=== PATIENT | male | born 1945 | race Caucasian/White ===

== ENCOUNTER 2017-12-11 20:05 | Observation (INO) ==
[2017-12-11 20:32] LABS: Basophils # 0.1 K/mcL (0.0-0.2); Basophils % 1.1 %; Eosinophils # 0.4 K/mcL (0.0-0.6); Eosinophils % 5.2 %; Hematocrit 44.9 % (37.5-50.1); Hemoglobin 15.2 g/dL (12.9-16.9); Immature Granulocytes % 0.4 % (0-4); Lymphocytes # 2.2 K/mcL (0.6-4.6); Lymphocytes % 27.7 %; Mean Corpuscular HGB Conc 33.9 g/dL (31.6-35.5); Mean Corpuscular Hemoglobin 30.2 pg (28.0-33.3); Mean Corpuscular Volume 89.1 fL (83.0-100.0); Mean Platelet Volume 9.5 fL (9.4-12.4); Monocytes # 1.1 K/mcL (0.0-1.3); Neutrophils # 4.1 K/mcL (1.6-8.9); Platelet Count 230 K/mcL (140-400); Red Blood Count 5.04 M/mcL (4.19-5.50); Red Cell Distribution Width 13.2 % (11.5-14.5); Segmented Neutrophils % 51.6 %
--- NOTE | 2017-12-11 20:36 | Emergency Department Note ---
Disposition Clinical Impression: Altered mental status Qualifiers: Altered mental status type: unspecified Qualified Code(s): R41.82 - Altered mental status, unspecified Disposition: Admitted As Inpatient Condition: Fair Forms: ED Satisfaction Letter Time of Disposition: 22:00 Neuro HPI - General Chief Complaint: ED Neuro Symptoms/Deficit Stated Complaint: Possible stroke Time Seen by Provider: 12/11/17 20:17 Source: patient, family Limitations: no limitations - History of Present Illness HPI Narrative: Alonzo Dalton is a 72 year old male presenting with 40 minutes of dizziness that started when he was in the barn with his son on his property. As his son b brought him back to the house, he noted stumbling gait and his states that he became very pale. He did have confused and rambling speech, as well. This has since improved. He also experienced diaphoresis and nausea, but no chest pain, shortness of breath, or vomiting. There were no focal neurologic deficits noted. Patient has a significant cardiac history including ME, 6 or 7 coronary stents, and aortic stenosis. Patient's last catheterization was 2-3 weeks ago, with no revision done at that time. - Related Data Home Medications: Home Medications Medication Instructions Recorded Confirmed Atorvastatin [Lipitor] 40 mg PO HS 06/17/16 11/22/17 Lisinopril [Zestril] 20 mg PO DAILY 06/17/16 11/22/17 Metoprolol XL (24 HR) Succ [Toprol 25 mg PO BID 06/17/16 11/22/17 Xl] Nitroglycerin [Nitrostat] 0.4 mg SL DAILY PRN 06/17/16 11/22/17 Clopidogrel [Plavix] 75 mg PO DAILY 11/22/17 11/22/17 Previous Rx's Medication Instructions Recorded Isosorbide MONOnitrate (24 HR) 60 mg PO BID #60 tab.er.24h 11/22/17 [Imdur] Allergies/Adverse Reactions: Allergies Allergy/AdvReac Type Severity Reaction Status Date / Time No Known Allergies Allergy Verified 06/17/16 13:32 Constitutional: Reports: fever, chills Cardiovascular: Denies: chest pain, palpitations, dyspnea on exertion Neurological: Reports: confusion, abnormal gait. Denies: headache, weakness, numbness, paresthesias Past Medical History - Past Medical History Medical history: Reports: coronary artery disease, hyperlipidemia, hypertension , myocardial infarction Surgical history: Reports: angioplasty/stent, other Psychiatric history: Reports: no psych history - Social History Smoking Status: Never smoker Smokeless Tobacco Status: No Alcohol use: Reports: none Drug use: Reports: none Physical Exam - General Limitations: no limitations General appearance: alert, in no apparent distress - Head Head exam: atraumatic, normocephalic - Eye Eye exam: Present: PERRL - Respiratory Respiratory exam: Present: normal lung sounds bilaterally - Cardiovascular Cardiovascular exam: Present: regular rate, systolic murmur, +S1, +S2 - Neurological Exam Neurological exam: Present: alert, oriented X3, CN II-XII intact, other ( patient able to identify "stethoscope" and "pen"; no facial asymmetry; no focal deficits noted) - Psychiatric Psychiatric exam: Present: normal affect, normal mood - Skin Skin exam: Present: warm, dry Course Course Narrative: Patient presented with concern for stroke after an episode of dizziness, stumbling gait, and rambling speech. Family denied focal symptoms, including facial drooping, arm or leg weakness, and slurring speech. Patient without focal neurologic deficits on presentation, and symptomatology more closely resembles a presyncope. Patient does have a history of aortic stenosis per his daughter. CBC, BMP, and coags were without significant abnormalities. His daughter at this point stated the she did think he had some facial drooping at home, and they were noticing personality changes with inappropriate comments. It was at this point that we activated the stroke alert and CT scan was ordered. Case was discussed with [facility] and it was decided the patient was not a candidate for TPA due to his lack of hard neurologic signs and his use of plavix. Patient remained in good condition with stable vital signs and no noted neurologic changes. Patient was discussed with Dr. Mcpherson and the patient was admitted for further work up. Vital Signs Temperature 98.7 F 12/11/17 20:11 Pulse Rate 71 12/11/17 20:11 Respiratory Rate 18 12/11/17 20:11 Blood Pressure 179/97 12/11/17 20:11 O2 Sat by Pulse Oximetry 96 12/11/17 20:11 Temperature 98.7 F 12/11/17 20:11 Pulse Rate 71 12/11/17 20:11 Respiratory Rate 18 12/11/17 20:11 Blood Pressure 179/97 12/11/17 20:11 O2 Sat by Pulse Oximetry 96 12/11/17 20:11 Oxygen Delivery Oxygen Delivery Room Air Neuro Symptoms/Deficit - Medical Records Medical records reviewed: Yes I reviewed the patient's medical records. - Lab Data Lab results reviewed: Yes I reviewed the patient's lab results. Result diagrams: 12/11/17 20:13 12/11/17 20:13 Lab Results 12/11/17 12/11/17 12/11/17 Range/Units 20:13 20:13 20:13 WBC 8.0 (4.3-11.1) K/mcL RBC 5.04 (4.19-5.50) M/mcL Hgb 15.2 (12.9-16.9) g/dL Hct 44.9 (37.5-50.1) % MCV 89.1 (83.0-100.0) fL MCH 30.2 (28.0-33.3) pg MCHC 33.9 (31.6-35.5) g/dL RDW 13.2 (11.5-14.5) % Plt Count 230 (140-400) K/mcL MPV 9.5 (9.4-12.4) fL Immature Gran % 0.4 (0-4) % Seg Neutrophils % 51.6 % Lymphocytes % 27.7 % Monocytes % 14.0 % Eosinophils % 5.2 % Basophils % 1.1 % Neutrophils # 4.1 (1.6-8.9) K/mcL Lymphocytes # 2.2 (0.6-4.6) K/mcL Monocytes # 1.1 (0.0-1.3) K/mcL Eosinophils # 0.4 (0.0-0.6) K/mcL Basophils # 0.1 (0.0-0.2) K/mcL PT 11.3 (9.4-12.1) Seconds INR 1.1 APTT 28.4 (26.0-36.0) Seconds Sodium 141 (136-145) mEq/L Potassium 3.6 (3.5-5.1) mEq/L Chloride 109 H (98-107) mEq/L Carbon Dioxide 23 (23-29) mEq/L BUN 15 (8-23) mg/dL Creatinine 1.14 (0.70-1.30) mg/dL Est GFR ( Amer) > 60 (> 60) Est GFR (Non-Af Amer) > 60 (> 60) BUN/Creatinine Ratio 13 (6-26) Glucose 105 (70-105) mg/dL Calculated Osmolality 293 (280-300) Calcium 9.7 (8.6-10.3) mg/dL Troponin I < 0.03 (< 0.04) ng/mL - EKG Data EKG attestation: Yes I reviewed and interpreted this EKG. Rhythm: NSR NIH Stroke Scale - Level of Consciousness LOC: Alert - LOC Questions LOC Questions: Answers both correctly - LOC Commands LOC Commands: Performs both correctly - Best Gaze Best Gaze: Normal - Visual Visual: No visual loss - Facial Palsy Facial Palsy: Normal - Motor Arms Motor Arm-Left: No drift for 10 seconds Motor Arm-Right: No drift for 10 seconds - Motor Legs Motor Leg-Left: No drift for 5 seconds Motor Leg-Right: No drift for 5 seconds - Limb Ataxia Limb Ataxia: Normal, No Ataxia - Sensory Sensory: Normal - Best Language Best Language: No aphasia - Dysarthria Dysarthria: Normal - Extinction and Inattention Extinction and Inattention: Normal - NIHSS Total Score NIHSS Total Score: 0 TPA Checklist - LKW: 3-4.5 hrs Add. Warnings/Precautions Patient/family understanding: The patient/family members have been counseled and understood the risk, benefit , and alternatives of treatment.
--- NOTE | 2017-12-11 20:37 | Emergency Department Note ---
Disposition Clinical Impression: Altered mental status Qualifiers: Altered mental status type: disorientation Qualified Code(s): R41.0 - Disorientation, unspecified Disposition: Admitted As Inpatient Condition: Fair General Adult HPI - General Chief complaint: ED Neuro Symptoms/Deficit Stated complaint: Possible stroke Time Seen by Provider: 12/11/17 20:17 Source: patient, family Limitations: no limitations Nursing Notes Reviewed: Yes Vital Signs Reviewed: Yes - History of Present Illness Pain Scale: 0 - Related Data Home Medications Medication Instructions Recorded Confirmed Atorvastatin [Lipitor] 40 mg PO HS 06/17/16 12/11/17 Lisinopril [Zestril] 20 mg PO DAILY 06/17/16 12/11/17 Metoprolol XL (24 HR) Succ [Toprol 25 mg PO BID 06/17/16 12/11/17 Xl] Nitroglycerin [Nitrostat] 0.4 mg SL DAILY PRN 06/17/16 12/11/17 Clopidogrel [Plavix] 75 mg PO DAILY 11/22/17 12/11/17 Previous Rx's Medication Instructions Recorded Isosorbide MONOnitrate (24 HR) 60 mg PO BID #60 tab.er.24h 11/22/17 [Imdur] Allergies Allergy/AdvReac Type Severity Reaction Status Date / Time No Known Allergies Allergy Verified 06/17/16 13:32 Past Medical History - Past Medical History Medical history: Reports: coronary artery disease, hyperlipidemia, hypertension , myocardial infarction Surgical history: Reports: angioplasty/stent, other Psychiatric history: Reports: no psych history - Social History Smoking Status: Never smoker Smokeless Tobacco Status: No Alcohol use: Reports: none Drug use: Reports: none Physical Exam - General Limitations: no limitations General appearance: alert, in no apparent distress Course Vital Signs Temperature 98.7 F 12/11/17 20:11 Pulse Rate 71 12/11/17 20:11 Respiratory Rate 18 12/11/17 20:11 Blood Pressure 179/97 12/11/17 20:11 O2 Sat by Pulse Oximetry 96 12/11/17 20:11 Temperature 98.7 F 12/11/17 20:11 Pulse Rate 82 12/11/17 22:42 Respiratory Rate 16 12/11/17 22:42 Blood Pressure 160/85 12/11/17 22:42 O2 Sat by Pulse Oximetry 95 12/11/17 22:42 Oxygen Delivery Oxygen Delivery Room Air Medical Decision Making - Lab Data Result diagrams: 12/11/17 20:13 12/11/17 20:13 Lab Results 12/11/17 12/11/17 12/11/17 Range/Units 20:13 20:13 20:13 WBC 8.0 (4.3-11.1) K/mcL RBC 5.04 (4.19-5.50) M/mcL Hgb 15.2 (12.9-16.9) g/dL Hct 44.9 (37.5-50.1) % MCV 89.1 (83.0-100.0) fL MCH 30.2 (28.0-33.3) pg MCHC 33.9 (31.6-35.5) g/dL RDW 13.2 (11.5-14.5) % Plt Count 230 (140-400) K/mcL MPV 9.5 (9.4-12.4) fL Immature Gran % 0.4 (0-4) % Seg Neutrophils % 51.6 % Lymphocytes % 27.7 % Monocytes % 14.0 % Eosinophils % 5.2 % Basophils % 1.1 % Neutrophils # 4.1 (1.6-8.9) K/mcL Lymphocytes # 2.2 (0.6-4.6) K/mcL Monocytes # 1.1 (0.0-1.3) K/mcL Eosinophils # 0.4 (0.0-0.6) K/mcL Basophils # 0.1 (0.0-0.2) K/mcL PT 11.3 (9.4-12.1) Seconds INR 1.1 APTT 28.4 (26.0-36.0) Seconds Sodium 141 (136-145) mEq/L Potassium 3.6 (3.5-5.1) mEq/L Chloride 109 H (98-107) mEq/L Carbon Dioxide 23 (23-29) mEq/L BUN 15 (8-23) mg/dL Creatinine 1.14 (0.70-1.30) mg/dL Est GFR ( Amer) > 60 (> 60) Est GFR (Non-Af Amer) > 60 (> 60) BUN/Creatinine Ratio 13 (6-26) Glucose 105 (70-105) mg/dL Calculated Osmolality 293 (280-300) Calcium 9.7 (8.6-10.3) mg/dL Troponin I < 0.03 (< 0.04) ng/mL Attestation Statement - Attestation Attestation: I, Frank Mcarthur, examined this patient and my medical decision-making was reviewed with the BODY STRAIGHTENER/PA/Advanced Practice Nurse/Resident Physician. I agree with the documented findings, disposition and treatment plan as described except to the extent set forth below. 72-year-old male presents emergency Department with concerns of acute onset near syncopal symptoms. Patient states he was out in the barn helping his son when he had acute onset of lightheadedness, sweating, nausea. He walked back to the house and the states that he had become very pale had mild slurred speech however he did not have any focal neurologic deficits noted by the . Patient has a significant history of coronary artery disease with multiple stents in place. He recently had a heart catheterization performed within the past 3 weeks however there were no revisions to his stents at that time. Patient came into the emergency department as a possible stroke however he had no focal neurologic deficits present on exam, with NIH of 0, and there is no deficits that were described other than momentary slurred speech which I believe was more likely due to near syncope rather than stroke as there is no facial drooping and this lasted for a few seconds. We will obtain laboratory evaluation to rule out ACS he will likely be admitted to the hospital for further care and evaluation for near syncopal event.
[2017-12-11 20:38] LABS: INR 1.1; Prothrombin Time 11.3 Seconds (9.4-12.1)
[2017-12-11 20:41] LABS: Activated Partial Thrombo Time 28.4 Seconds (26.0-36.0)
[2017-12-11 20:42] LABS: BUN/Creatinine Ratio 13 (6-26); Blood Urea Nitrogen 15 mg/dL (8-23); Calcium 9.7 mg/dL (8.6-10.3); Carbon Dioxide 23 mEq/L (23-29); Chloride 109 mEq/L (98-107); Glucose 105 mg/dL (70-105); Osmolality,Calculated 293 (280-300); Potassium 3.6 mEq/L (3.5-5.1); Sodium 141 mEq/L (136-145); eGFR For African Americans > 60 (> 60); eGFR For Non-African Americans > 60 (> 60)
[2017-12-11 20:43] LABS: Troponin I < 0.03 ng/mL (< 0.04)
[2017-12-11] MEDS ORDERED: Aspirin 81 MG TAB.CHEW PO STA (21:03)
--- NOTE | 2017-12-11 23:32 | Internal Med History&Physical ---
Date of Encounter: 12/11/17 Time of Encounter: 23:30 Assessment and Plan (1) Altered mental status Current visit: Yes Status: Acute admitted for TIA eval. Stroke alert performed in the ED. Rec admit for MRI, TTE carotid doppler 11/07/17 with no significant stenosis PT/OT check UA/Urine cx, metabolic panel, NH3, TSH, FT4 Qualifiers: Altered mental status type: disorientation Qualified Code(s): R41.0 - Disorientation, unspecified (2) CAD (coronary artery disease) Current visit: No Status: Chronic s/p stent on plavix, statin, imdur, toprol Follows with Dr Philippe , s/p 7 stents, last [facility] 11/24/17 with CAD but without need for further stenting Qualifiers: Coronary Disease-Associated Artery/Lesion type: [place] artery [place] vs. transplanted heart: [place] heart Associated angina: without angina Qualified Code(s): I25.10 - Atherosclerotic heart disease of [place] coronary artery without angina pectoris (3) Hyperlipidemia Current visit: No Status: Acute Qualifiers: Hyperlipidemia type: pure hypercholesterolemia Qualified Code(s): E78.00 - Pure hypercholesterolemia, unspecified; E78.0 - Pure hypercholesterolemia Internal Medicine - H&P: HPI Chief complaint: AMS History of present illness: Mr. Dalton is a 72 year old male history of CAD status post multiple stents, hyperlipidemia, hypertension, who presents with acute onset mental status change and stumbling. Admitted for TIA CVA workup. Patient develops symptoms at about 7 PM tonight when he stumbled and felt dizzy that was witnessed by his son-in-law while walking in the barn. He was subsequently helped back to the house where his gait was noted to be abnormal and was walking funny. This was associated with mental status change notably confusion with poor short-term memory recall of the incidents and events. On arrival in the ER his daughter noted a right sided facial droop and slurred speech. A stroke alert was called in the ER with plans for inpatient admission for TIA CVA workup. On review family noted that he will had a transient diaphoretic episode and had some abdominal ache Of note he is known to cardiology with CAD and multiple stents. Recently had a left heart catheter by Dr. Philippe earlier this month with CAD and without new stenting. EKG proceed with personally reviewed with rate [address]/CT head/brain wo con IMPRESSION: 1. No acute intracranial abnormality. XR/XR chest 1V portable IMPRESSION: No acute findings. Past Med Surg Social Fam HX - Past Medical History Medical history: coronary artery disease, hyperlipidemia, hypertension, myocardial infarction Psychiatric history: no psych history - Past Surgical History Surgical History: angioplasty/stent, other - Social History Smoking Status: Never smoker Smokeless Tobacco Status: No Alcohol use: none Drug use: none Internal Medicine - H&P: Meds Atorvastatin [Lipitor] 40 mg PO HS 06/17/16 [History] Lisinopril [Zestril] 20 mg PO DAILY 06/17/16 [History] Metoprolol XL (24 HR) Succ [Toprol Xl] 25 mg PO BID 06/17/16 [History] Nitroglycerin [Nitrostat] 0.4 mg SL DAILY PRN 06/17/16 [History] Clopidogrel [Plavix] 75 mg PO DAILY 11/22/17 [History] Isosorbide MONOnitrate (24 HR) [Imdur] 60 mg PO BID #60 tab.er.24h 11/22/17 [Rx] 3 Allergy/AdvReac Type Severity Reaction Status Date / Time No Known Allergies Allergy Verified 06/17/16 13:32 All Systems PM: A 10-system review of systems was performed and is negative for pertinent findings except as documented above in the HPI. Review of systems: ROS 14 point review of systems reviewed as best as possible given presentation. Pertinent positive or negative as per HPI or otherwise reviewed as negative - Constitutional Vitals: Temp Pulse Resp BP Pulse Ox 98.7 F 82 16 160/85 95 12/11/17 20:11 12/11/17 22:42 12/11/17 22:42 12/11/17 22:42 12/11/17 22:42 Exam: General - AAO x 3 but somewhat confused per family Eyes - ANNETTE. Eye lids intact. No scleral icterus Neuro - No gross peripheral or central neuro deficits on exam Heart - Sinus. RRR. S1 and S2 present. Systolic murmurs appreciated. No elevated JVD appreciated. Lung - Adequate air entry b/l, No crackles/wheezes appreciated GI - Soft, non-tender. No hepatosplenomegaly/ascites. BS+ - No CVA/suprapubic tenderness or palpable bladder distension Skin - Intact. No rash/petechiae/ecchymosis. Warm extremities Internal Med - H&P Results - Labs CBC & Chem 7: 12/11/17 20:13 12/11/17 20:13
[2017-12-11] MEDS ORDERED: Nitroglycerin 0.4 MG TAB.SUBL SL PRN (23:34)
[2017-12-11] MEDS ORDERED: Naloxone 0.4 MG/ML INJ IVP PRN (23:35)
[2017-12-12] MEDS ORDERED: *HR* Metoprolol 5 MG/5 ML VIAL IVP ONE (00:19)
[2017-12-12 06:16] LABS: Alanine Aminotransferase 18 Units/L (7-52); Albumin 3.7 g/dL (3.5-5.7); Alkaline Phosphatase 64 Units/L (34-104); Aspartate Amino Transferase 19 Units/L (13-39); BUN/Creatinine Ratio 12 (6-26); Bilirubin,Total 0.4 mg/dL (0.3-1.0); Blood Urea Nitrogen 13 mg/dL (8-23); Calcium 9.6 mg/dL (8.6-10.3); Carbon Dioxide 24 mEq/L (23-29); Chloride 112 mEq/L (98-107); Chol/HDL Ratio 2.8 (0-4.9); Cholesterol 144 mg/dL (< 200); Globulin 3.6 g/dL (2.4-3.5); Glucose 90 mg/dL (70-105); HDL Cholesterol 52 mg/dL (40-59); LDL Cholesterol,Calculated 61 mg/dL (0-99); Osmolality,Calculated 300 (280-300); Sodium 145 mEq/L (136-145); Total Protein 7.3 g/dL (6.4-8.9); Triglycerides 153 mg/dL (< 150); eGFR For African Americans > 60 (> 60); eGFR For Non-African Americans > 60 (> 60)
[2017-12-12 06:32] LABS: Thyroid Stimulating Hormone 1.26 mcIU/mL (0.340-5.600)
[2017-12-12] MEDS: Lisinopril 20 MG TABLET PO SCH (08:28)
[2017-12-12] MEDS: Isosorbide MONOnitrate (24 HR) 60 MG TAB.ER.24H PO SCH ×2 (08:28→20:01)
[2017-12-12] MEDS: Metoprolol XL (24 HR) Succ 25 MG TAB.ER.24H PO SCH ×2 (08:28→20:01)
--- NOTE | 2017-12-12 10:56 | Internal Med Progress Note ---
Date of Encounter: 12/12/17 Time of Encounter: 10:54 - Assessment and plan (1) TIA (transient ischemic attack) Current Visit: Yes Status: Acute Assessment and plan: Continue Plavix and statin. MRI is pending. CT head was negative. Echocardiogram is ordered and is pending. If all these tests are coming back within a reasonable time the patient may be discharged later this afternoon. Otherwise we will discharge tomorrow. PTOT. Qualifiers: Transient cerebral ischemia type: unspecified Qualified Code(s): G45.9 - Transient cerebral ischemic attack, unspecified (2) CAD (coronary artery disease) Current Visit: No Status: Chronic Assessment and plan: Continue Plavix, statin, and beta viviana. Qualifiers: Coronary Disease-Associated Artery/Lesion type: [place] artery [place] vs. transplanted heart: [place] heart Associated angina: without angina Qualified Code(s): I25.10 - Atherosclerotic heart disease of [place] coronary artery without angina pectoris (3) Hypertension Current Visit: No Status: Chronic Assessment and plan: Continue lisinopril and metoprolol. Qualifiers: Hypertension type: essential hypertension Qualified Code(s): I10 - Essential (primary) hypertension (4) Hyperlipidemia Current Visit: No Status: Acute Assessment and plan: Continue statin Qualifiers: Hyperlipidemia type: pure hypercholesterolemia Qualified Code(s): E78.00 - Pure hypercholesterolemia, unspecified; E78.0 - Pure hypercholesterolemia (5) DVT prophylaxis Current Visit: Yes Status: Acute Assessment and plan: Ambulating - Subjective Interval history: Patient was seen and examined. No acute events. Admitted yesterday with workup for TIA/CVA. Says he developed symptoms about 7 PM yesterday where he had stumbled and fell dizzy. Son-in-law are noted of the time those symptoms. The patient does not remember them. He also says that he was confused. A stroke alert was called and recommended admission for workup. Family also reports that there was suspected right-sided facial droop. All of his symptoms resolved while he is hospitalized. - Constitutional Vitals: Temp Pulse Resp BP Pulse Ox 97.8 F 66 15 167/84 97 12/12/17 08:29 12/12/17 08:29 12/12/17 08:29 12/12/17 08:29 12/12/17 08:29 Exam: GEN: NAD CVS: RRR. S1, S2, No m/r/g RESP: CTAB ABD: Soft, NT, ND, +BS EXT: No edema. 2+ DP. No rashes NEURO: Nonfocal Internal Medicine: Result - Labs CBC & Chem 7: 12/11/17 20:13 12/12/17 05:39 Labs: BMP 12/12/17 05:39 Sodium 145 Potassium 4.0 Chloride 112 H Carbon Dioxide 24 BUN 13 Creatinine 1.05 Glucose 90 Calcium 9.6 Liver Function 12/12/17 Range/Units 05:39 Total Bilirubin 0.4 (0.3-1.0) mg/dL AST 19 (13-39) Units/L ALT 18 (7-52) Units/L Alkaline Phosphatase 64 (34-104) Units/L Albumin 3.7 (3.5-5.7) g/dL - ABG Interpretation ABG results: PT/INR, D-dimer PT 11.3 Seconds (9.4-12.1) 12/11/17 20:13 Consult Discharge Plan - Plan Referrals: Brendan Felix DO [Primary Care Provider] -
[2017-12-12] MEDS ORDERED: Acetaminophen 325 MG TABLET PO PRN (15:07)
--- NOTE | 2017-12-12 17:37 | Event Note ---
Date of Encounter: 12/12/17 Time of Encounter: 17:34 MRI brain with two acute infarcts within subcortical white matter of the right parietal lobe measuring up to 1 cm. Will order rest of stroke work up and ask neurology to see to make final recs prior to discharge. Patient is on plavix/statin prior to admission.
[2017-12-13] MEDS: Lisinopril 20 MG TABLET PO SCH (09:09)
[2017-12-13] MEDS: Isosorbide MONOnitrate (24 HR) 60 MG TAB.ER.24H PO SCH (09:09)
[2017-12-13] MEDS: Metoprolol XL (24 HR) Succ 25 MG TAB.ER.24H PO SCH (09:09)
--- NOTE | 2017-12-13 11:25 | Discharge Summary ---
Orders not resulted at time of discharge: Pending orders 12/11/17 23:39 Culture,Urine [RM] Routine Urinalysis Reflex Cult & Micro [URIN] Routine Date of Encounter: 12/13/17 Time of Encounter: 11:23 - Discharge Diagnosis (1) CVA (cerebral vascular accident) Priority: Primary Status: Acute Qualifiers: CVA mechanism: unspecified Qualified Code(s): I63.9 - Cerebral infarction, unspecified (2) CAD (coronary artery disease) Priority: Primary Status: Chronic Qualifiers: Coronary Disease-Associated Artery/Lesion type: [place] artery [place] vs. transplanted heart: [place] heart Associated angina: without angina Qualified Code(s): I25.10 - Atherosclerotic heart disease of [place] coronary artery without angina pectoris (3) Hypertension Priority: Primary Status: Chronic Qualifiers: Hypertension type: essential hypertension Qualified Code(s): I10 - Essential (primary) hypertension (4) Hyperlipidemia Priority: Primary Status: Acute Qualifiers: Hyperlipidemia type: pure hypercholesterolemia Qualified Code(s): E78.00 - Pure hypercholesterolemia, unspecified; E78.0 - Pure hypercholesterolemia Hospital course: Mr. Dalton is a 72 year old male with history of CAD status post multiple stents, hyperlipidemia, hypertension, who presented with acute onset mental status change and stumbling. Admitted for TIA CVA workup. Patient develops symptoms at about 7 PM the night of his admission. Family stated that he stumbled and felt dizzy that was witnessed by his son-in-law while walking in the barn. He was subsequently helped back to the house where his gait was noted to be abnormal. This was associated with mental status change notably confusion with poor short-term memory recall of the incidents and events. On arrival in the ER his daughter noted a right sided facial droop and slurred speech. A stroke alert was called in the ER with plans for inpatient admission for TIA CVA workup. Symptoms had resolved by then and was not a tpa candidate. A CT head was negative. An MRI brain was done and showed 2 acute infarcts within the subcortical white matter of the right parietal lobe. Neurology were consulted and a stroke workup was done. Echocardiogram came back unremarkable with no PFO. Carotids ultrasounds were not ordered as the patient had one done a month ago with no significant stenosis. The patient was already on a statin as well as Plavix. Neurology recommended adding baby aspirin. The patient was discharged in stable condition on 12/13. He was back to baseline ambulating with no weakness whatsoever. - Time Spent with Patient Total time spent providing and/or coordinating discharge services: Greater than 30 minutes - Discharge Medications Prescriptions: Aspirin [Adult Aspirin Regimen] 81 mg PO DAILY #30 tablet. Metoprolol XL (24 HR) Succ [Toprol Xl] 50 mg PO BID #60 tab.er.24h Home Medications: Atorvastatin [Lipitor] 40 mg PO HS 06/17/16 [History] Nitroglycerin [Nitrostat] 0.4 mg SL DAILY PRN 06/17/16 [History] Clopidogrel [Plavix] 75 mg PO DAILY 11/22/17 [History] Isosorbide MONOnitrate (24 HR) [Imdur] 60 mg PO DAILY 12/12/17 [History] Lisinopril [Zestril] 40 mg PO DAILY 12/12/17 [History] Aspirin [Adult Aspirin Regimen] 81 mg PO DAILY #30 tablet. 12/13/17 [Rx] Metoprolol XL (24 HR) Succ [Toprol Xl] 50 mg PO BID #60 tab.er.24h 12/13/17 [Rx] Allergies/Adverse Reactions: 3 Allergy/AdvReac Type Severity Reaction Status Date / Time No Known Allergies Allergy Verified 12/12/17 09:12 Date of admission: 12/11/17 22:29 Primary care physician: Brendan Felix Consults: 12/11/17 23:41 Consult to Occupational Therapy [CONS] Routine Comment: Evaluate, develop and implement POC Reason for Consult: ambulate and assess Does patient have active BEDREST order?: No Is patient medically & hemodynamically stable?: Yes Patient assessed for mobility or mobilized this visit?: Yes Consult to Physical Therapy [CONS] Routine Comment: Evaluate, develop and implement POC Reason for Consult: ambulate assess for placement need Does patient have active BEDREST order?: No Is patient medically & hemodynamically stable?: Yes Patient assessed for mobility or mobilized this visit?: Yes 12/12/17 17:32 Consult to Neurology [CONS] Routine Consulting Provider: Neurology [facility] Reason for Consult: new CVA Call Completed: No - Constitutional Vitals: Temp Pulse Resp BP Pulse Ox 98.6 F 80 16 165/80 94 12/13/17 08:13 12/13/17 08:13 12/13/17 08:13 12/13/17 08:13 12/13/17 09:15 Exam: GEN: NAD CVS: RRR. S1, S2, No m/r/g RESP: CTAB ABD: Soft, NT, ND, +BS EXT: No edema. 2+ DP. No rashes NEURO: Nonfocal - Patient Status Disposition: Home, Self-Care Condition: Fair Overall status at discharge: patient is progressing back to baseline - Discharge Instructions Follow Up With: Brendan Felix DO [Primary Care Provider] - 12/16/17 1:00 pm - Diet and Activity Activity: increase activity as tolerated Diet: low salt diet
[2017-12-13 11:46] VITALS: BP 151/70
--- NOTE | 2017-12-13 15:04 | Neurology - Consult Note ---
Date of Encounter: 12/13/17 Time of Encounter: 11:55 Assessment and Plan (1) CVA (cerebral vascular accident) Status: Acute This patient's symptoms seems to be consistent with an acute infarct, he is been back to his baseline and all his symptoms at the time of presentation has been resolved now MRI of the brain shows acute punctate infarct, . Two acute infarcts within the subcortical white matter of the right parietal lobe measuring up to 1 cm. No acute intracranial hemorrhage. At the same time Diffuse cerebral volume loss and mild chronic small vessel ischemic changes noted as well. Patient already had a carotid duplex about a month ago and noted was normal he is getting an echocardiogram. Next line is already on antiplatelet therapy with Plavix because of his coronary artery disease suggested to add a baby aspirin for dual antiplatelet therapy. He is already on a statin suggested to continue better control of his blood sugar and blood pressure is recommended at the same time suggest to monitor for any underlying cardiac arrhythmias. Patient also would benefit from regular exercises. Patient did not have any focal motor neurological deficit do not think that he would require any physical therapy speech therapy or any rehabilitation If remained stable and workup is negative okay to discharge from neurology standpoint Qualifiers: CVA mechanism: unspecified Qualified Code(s): I63.9 - Cerebral infarction, unspecified History of Present Illness HPI: Mr. Dalton is a 72 year old male history of CAD status post multiple stents, hyperlipidemia, hypertension, who presents with acute onset mental status change and stumbling. Admitted for TIA CVA workup. Patient develops symptoms at about 7 PM night before admission, when he stumbled and felt dizzy that was witnessed by his son-in-law while walking in the barn. He was subsequently helped back to the house where his gait was noted to be abnormal and was walking funny. This was associated with mental status change notably confusion with poor short-term memory recall of the incidents and events. On arrival in the ER his daughter noted a right sided facial droop and slurred speech. A stroke alert was called in the ER with plans for inpatient admission for TIA CVA workup. Patient is currently asymptomatic all his symptoms are resolved now Past Med Surg Social Fam HX - Past Medical History Medical history: coronary artery disease, hyperlipidemia, hypertension, myocardial infarction Psychiatric history: no psych history - Past Surgical History Surgical History: angioplasty/stent, other - Social History Smoking Status: Never smoker Smokeless Tobacco Status: No Alcohol use: none Drug use: none Medications and Allergies Atorvastatin [Lipitor] 40 mg PO HS 06/17/16 [History] Nitroglycerin [Nitrostat] 0.4 mg SL DAILY PRN 06/17/16 [History] Clopidogrel [Plavix] 75 mg PO DAILY 11/22/17 [History] Isosorbide MONOnitrate (24 HR) [Imdur] 60 mg PO DAILY 12/12/17 [History] Lisinopril [Zestril] 40 mg PO DAILY 12/12/17 [History] Aspirin [Adult Aspirin Regimen] 81 mg PO DAILY #30 tablet.dr 12/13/17 [Rx] Metoprolol XL (24 HR) Succ [Toprol Xl] 50 mg PO BID #60 tab.er.24h 12/13/17 [Rx] 3 Allergy/AdvReac Type Severity Reaction Status Date / Time No Known Allergies Allergy Verified 12/12/17 09:12 All Systems: The remainder of the systems were reviewed and are negative Physical Examination - Vital Signs Vital Signs: Initial Vital Signs Temp Pulse Resp BP Pulse Ox 98.7 F 71 18 179/97 96 12/11/17 20:11 12/11/17 20:11 12/11/17 20:11 12/11/17 20:11 12/11/17 20:11 - Exam Exam: GENERAL: Comfortable in no acute distress HEENT: Normal LUNGS: CTA HEART: RRR, S1 S2 Audible, no murmur EXTREMITIES: No Pedal edema. DETAILED NEUROLOGICAL EXAMINATION: MENTAL STATUS: Oriented to person, place, date and situation. Memory: knows the President, Aware of recent events Recent Memory Intact Cranial Nerve Examination: CN - II: Visual Acuity, Field of Vision Normal, Fundus examination: No disk edema, Pupils- size shape reaction to light and accommodation: All normal. CN III, IV, : External ocular movements were intact, Pupils were reactive, Nodrooping of the eyelids CN V: Sensation over the face to light touch and pinprick all normal. Corneal reflexes not tested, jaw jerk normal. CN VII: No facial asymmetry, no flattening of nasolabial folds, no difficulty in closing the eyes, no loss of forehead wrinkles, no difficulty in eye-closure, frowning raising eyebrows. CNVIII: No significant hearing loss CN IX, X: Uvula centralized not deviated, Gag reflex: Not tested CN X1: Sternocleidomastoid, trapezius, normal or evidence of any weakness. CN X11: No Dysarthria, no wasting or fibrilation f tongue muscles, no deviation, tongue muscle strength normal. Motor examination: No hypertrophy, tone was normal, power grade 0-5 Upper limbs Proximal- No difficulty in lifting the arms above the head. Distal- Noweakness in distal muscles On formal testing 5/5 all over Lower limbs Proximal- No difficulty in getting up from the sitting position Distal- No difficulty in walking On formal testing 5/5 all over Coordination: Ttitoh-ne-kpry normal. Target pursuit normal finger tapping normal, Rapid alternating moment of wrist normal Sensory system: Superficial sensations- Touch normal. Pain- Pinprick, Temperature all normal, Deep sensation normal, Joint position sense normal. Cortical sensation, Tactile discrimination, localization and extinction all normal. Deep tendon reflexes. Symmetrical bilateral, No evidence of Babinski. No sign of meningeal irritation Gait Examination: Deferred Results - Laboratory Findings CBC and BMP: 12/11/17 20:13 12/12/17 05:39 Abnormal lab findings: Abnormal lab results Chloride 112 mEq/L (98-107) H 12/12/17 05:39 Globulin 3.6 g/dL (2.4-3.5) H 12/12/17 05:39 Albumin/Globulin Ratio 1.0 (1.1-2.2) L 12/12/17 05:39 Triglycerides 153 mg/dL (< 150) H 12/12/17 05:39 VLDL Cholesterol, Calc 31 mg/dL (< 31) H 12/12/17 05:39 - Diagnostic Findings Additional findings: MRI of the brain1. Two acute infarcts within the subcortical white matter of the right parietal lobe measuring up to 1 cm. 2. No acute intracranial hemorrhage. 3. Diffuse cerebral volume loss and mild chronic small vessel ischemic changes. Consult Discharge Plan - Plan Instructions: Metoprolol (By mouth), Transient Ischemic Attack (DC), Chronic Hypertension (DC) Referrals: Brendan Felix DO [Primary Care Provider] - 12/16/17 1:00 pm Prescriptions: Aspirin [Adult Aspirin Regimen] 81 mg PO DAILY #30 tablet. Metoprolol XL (24 HR) Succ [Toprol Xl] 50 mg PO BID #60 tab.er.24h
--- NOTE | 2017-12-13 19:39 | Electrocardiograph Report ---
[place] [id number] Test Date: 2017-12-11 Pat Name: Alonzo Dalton Department: 104 Room: 2A Gender: M Procedures Tech: PETER : 1945 Requested By: Frank Mcarthur Order Number: [id number] Reading MD: He Stein MD Measurements Intervals [place] Rate: 74 P: 74 [place]: 205 QRS: 74 QRSD: 104 T: 71 QT: 394 QTc: 421 Interpretive Statements SINUS RHYTHM LEFT ATRIAL ENLARGEMENT Electronically Signed On 12-13-2017 19:38:23 EDT by He Stein MD
[2017-12-13] MEDS ORDERED: Metoprolol XL (24 HR) Succ 50 MG TAB.ER.24H PO SCH (21:00)
== END 2017-12-13 14:38 | disposition home or self-care (01) ==
LOC: EMEROO 20:05 → 2ANU 20:05
PROVIDERS: ADMIT Internal Medicine Hematology & Oncology; ATTEND Internal Medicine

== ENCOUNTER 2022-03-19 06:04 | Inpatient (IN) ==
[~2022-03-19 06:04] MED LIST: Aspirin 81 MG TAB.CHEW PO ONE
[2022-03-19] MEDS ORDERED: DOBUTamine 1,000 MG/250 ML BAG ONE (06:07)
[2022-03-19] MEDS ORDERED: *HR* Midazolam HCl 5 MG/5 ML VIAL IVP ONE ×3 (06:10→17:30)
[2022-03-19] MEDS ORDERED: *HR* FentaNYL (PF) 1,000 MCG/20 ML VIAL ONE (06:11)
[2022-03-19] MEDS ORDERED: *HR* Rocuronium Bromide 50 MG/5 ML VIAL ONE ×4 (06:11→17:29)
[2022-03-19] MEDS ORDERED: *HR* Propofol 200 MG/20 ML VIAL IVP ONE (06:11)
[2022-03-19] MEDS ORDERED: Lidocaine 2% Syringe 100 MG/5 ML ONE (06:12)
[2022-03-19] MEDS ORDERED: Famotidine 20 MG/2 ML VIAL ONE (06:12)
[2022-03-19] MEDS ORDERED: Tranexamic Acid 1,000 MG/10 ML VIAL ONE (06:12)
[2022-03-19] MEDS ORDERED: Papaverine 60 MG/2 ML VIAL IVP ONE (06:18)
[2022-03-19] MEDS ORDERED: CeFAZolin Syr 2,000MG/20 ML 2,000 MG/20 ML SYRINGE IVPB ONE ×2 (06:30→18:45)
[2022-03-19] MEDS ORDERED: Vancomycin 1,250 MG/262.5 ML IV.SOLN IVPB ONE (06:30)
[2022-03-19] MEDS: Chlorhexidine Rinse 15 ML MOUTHWASH MM SCH ×2 (06:57→20:28)
[2022-03-19] MEDS ORDERED: del Nido Cardioplegia Solution PF ONE ×2 (07:00)
[2022-03-19] MEDS ORDERED: Norepinephrine 4 MG in 0.9 % Sodium Chloride 250 ML IVC PRN (07:00)
[2022-03-19] MEDS ORDERED: Buckersberg's Blood Cardioplegia PF ONE (07:00)
[2022-03-19] MEDS ORDERED: Heparin 15,000 UNIT in 0.9 % Sodium Chloride 500 ML IV ONE (07:00)
[2022-03-19 07:25] LABS: ABG Base Excess -1 mEq/L (-2 to 3); ABG Chloride 107 mEq/L (98-107); ABG Glucose 93 mg/dL (60-95); ABG HCO3 25 mEq/L (21-27); ABG Ionized Calcium 1.27 mmol/L (1.15-1.35); ABG Oxygen Saturation 100 % (95-98); ABG PCO2 48 mmHg (35-45); ABG PH 7.33 pH Units (7.32-7.45); ABG PO2 286 mmHg (85-104); ABG TCO2 27 mEq/L (20-26)
[2022-03-19] MEDS ORDERED: niCARdipine 20 MG/200 ML MLS IVC ONE (08:39)
[2022-03-19] MEDS ORDERED: *HR* FentaNYL (PF) 250 MCG/5 ML VIAL ONE ×2 (08:43→17:57)
[2022-03-19 09:09] LABS: ABG Base Excess -2 mEq/L (-2 to 3); ABG Chloride 106 mEq/L (98-107); ABG Glucose 130 mg/dL (60-95); ABG HCO3 22 mEq/L (21-27); ABG Oxygen Saturation 100 % (95-98); ABG PCO2 35 mmHg (35-45); ABG PH 7.41 pH Units (7.32-7.45); ABG PO2 167 mmHg (85-104); ABG TCO2 23 mEq/L (20-26)
[2022-03-19] MEDS ORDERED: Potassium Chloride 40 MEQ/200 ML BAG IVPB PRN (09:59)
[2022-03-19] MEDS ORDERED: Naloxone 0.4 MG/ML INJ IVP PRN (09:59)
[2022-03-19] MEDS ORDERED: Acetaminophen 325 MG TABLET PO PRN (09:59)
[2022-03-19] MEDS ORDERED: Calcium Gluconate 1gm/50mL 1 GM/50 ML BAG IVPB PRN ×2 (09:59→22:46)
[2022-03-19] MEDS ORDERED: Insulin Regular, Human 100 UNIT/ML IV PRN (09:59)
[2022-03-19] MEDS ORDERED: *HR* Dextrose 50 % in Water (Syg) 50 ML SYRINGE IVP PRN (09:59)
[2022-03-19 10:43] LABS: ABG Base Excess -3 mEq/L (-2 to 3); ABG Chloride 104 mEq/L (98-107); ABG Glucose 170 mg/dL (60-95); ABG HCO3 22 mEq/L (21-27); ABG Ionized Calcium 0.97 mmol/L (1.15-1.35); ABG Oxygen Saturation 100 % (95-98); ABG PCO2 40 mmHg (35-45); ABG PH 7.36 pH Units (7.32-7.45); ABG PO2 607 mmHg (85-104); ABG TCO2 24 mEq/L (20-26)
[2022-03-19] MEDS ORDERED: *HR* Phenylephrine 10 MG/ML VIAL IVC ONE (10:49)
[2022-03-19] MEDS ORDERED: *HR* Magnesium Sulfate 2 GM/50 ML PIGGYBACK IVPB ONE (10:49)
[2022-03-19] MEDS ORDERED: Tranexamic Acid 1,000 MG/10 ML VIAL IR ONE (10:49)
[2022-03-19] MEDS ORDERED: Albumin Human 25% 25 GM/100 ML IV.SOLN IVPB ONE (10:49)
[2022-03-19] MEDS ORDERED: Mannitol 25% vial 12.5 GM/50 ML VIAL IVPB ONE (10:49)
[2022-03-19] MEDS ORDERED: Lidocaine 2% Syringe 100 MG/5 ML IVP ONE (10:49)
[2022-03-19] MEDS ORDERED: *HR* Heparin 10,000 UNIT/10 ML VIAL IR ONE (10:49)
[2022-03-19 11:11] LABS: ABG Base Excess 1 mEq/L (-2 to 3); ABG Chloride 104 mEq/L (98-107); ABG Glucose 181 mg/dL (60-95); ABG HCO3 25 mEq/L (21-27); ABG Oxygen Saturation 100 % (95-98); ABG PCO2 38 mmHg (35-45); ABG PH 7.43 pH Units (7.32-7.45); ABG PO2 555 mmHg (85-104); ABG TCO2 26 mEq/L (20-26)
[2022-03-19] MEDS ORDERED: Calcium Gluconate 1,000 MG/10 ML VIAL ONE ×3 (11:32→19:21)
[2022-03-19] MEDS ORDERED: Protamine Sulfate 250 MG/25 ML VIAL IVP ONE (11:32)
[2022-03-19 11:45] LABS: ABG Base Excess -3 mEq/L (-2 to 3); ABG Chloride 106 mEq/L (98-107); ABG Glucose 178 mg/dL (60-95); ABG HCO3 22 mEq/L (21-27); ABG Ionized Calcium 1.47 mmol/L (1.15-1.35); ABG Oxygen Saturation 100 % (95-98); ABG PCO2 37 mmHg (35-45); ABG PH 7.38 pH Units (7.32-7.45); ABG PO2 529 mmHg (85-104); ABG TCO2 23 mEq/L (20-26)
[2022-03-19 12:12] LABS: ABG Base Excess -2 mEq/L (-2 to 3); ABG Chloride 107 mEq/L (98-107); ABG Glucose 148 mg/dL (60-95); ABG HCO3 21 mEq/L (21-27); ABG Ionized Calcium 1.04 mmol/L (1.15-1.35); ABG Oxygen Saturation 100 % (95-98); ABG PCO2 31 mmHg (35-45); ABG PH 7.44 pH Units (7.32-7.45); ABG PO2 552 mmHg (85-104); ABG TCO2 22 mEq/L (20-26)
[2022-03-19] MEDS ORDERED: Protamine Sulfate 50 MG/5 ML VIAL IVP ONE ×2 (12:39→14:52)
[2022-03-19 12:44] LABS: ABG Base Excess -4 mEq/L (-2 to 3); ABG Chloride 109 mEq/L (98-107); ABG Glucose 137 mg/dL (60-95); ABG HCO3 20 mEq/L (21-27); ABG Ionized Calcium 1.09 mmol/L (1.15-1.35); ABG Oxygen Saturation 100 % (95-98); ABG PCO2 33 mmHg (35-45); ABG PO2 429 mmHg (85-104); ABG TCO2 22 mEq/L (20-26)
[2022-03-19] MEDS ORDERED: ceFAZolin 1,000 MG in 0.9 % Sodium Chloride 10 ML IVP ONE (12:45)
[2022-03-19] MEDS: niCARdipine 20 MG/200 ML MLS IVC SCH ×3 (13:30→18:08)
[2022-03-19 13:47] LABS: ABG Base Excess -4 mEq/L (-2 to 3); ABG HCO3 22 mEq/L (21-27); ABG Oxygen Saturation 97 % (95-98); ABG PCO2 40 mmHg (35-45); ABG PH 7.34 pH Units (7.32-7.45); ABG PO2 96 mmHg (85-104); ABG TCO2 23 mEq/L (20-26); Blood Gas Modality ASSIST CONTROL; Blood Gas VT 500 cc
[2022-03-19 13:58] LABS: Basophils # 0.1 K/mcL (0.0-0.2); Basophils % 0.4 %; Eosinophils # 0.1 K/mcL (0.0-0.6); Eosinophils % 0.4 %; Hematocrit 34.1 % (37.5-50.1); Immature Granulocytes % 0.7 % (0-4); Lymphocytes # 0.8 K/mcL (0.6-4.6); Mean Corpuscular HGB Conc 34.3 g/dL (31.6-35.5); Mean Corpuscular Hemoglobin 31.6 pg (28.0-33.3); Mean Corpuscular Volume 92.2 fL (83.0-100.0); Mean Platelet Volume 9.3 fL (9.4-12.4); Monocytes # 0.9 K/mcL (0.0-1.3); Monocytes % 6.3 %; Neutrophils # 11.9 K/mcL (1.6-8.9); Platelet Count 108 K/mcL (140-400); Red Cell Distribution Width 13.8 % (11.5-14.5); Segmented Neutrophils % 86.2 %
[2022-03-19 13:59] LABS: Hemoglobin 11.7 g/dL (12.9-16.9); White Blood Count 13.8 K/mcL (4.3-11.1)
[2022-03-19] MEDS: Albumin Human 5% 12.5 GM/250 ML IV.SOLN IVPB PRN ×6 (14:00→17:02)
[2022-03-19 14:03] LABS: INR 1.6
[2022-03-19 14:06] LABS: Activated Partial Thrombo Time 32.7 Seconds (26.0-36.0)
[2022-03-19 14:13] LABS: BUN/Creatinine Ratio 12 (6-26); Blood Urea Nitrogen 12 mg/dL (8-23); Calcium 8.1 mg/dL (8.6-10.3); Carbon Dioxide 24 mEq/L (23-29); Chloride 110 mEq/L (98-107); Glucose 149 mg/dL (70-105); Magnesium 2.7 mg/dL (1.6-2.6); Osmolality,Calculated 293 (280-300); Sodium 140 mEq/L (136-145); eGFR For African Americans > 60 (> 60); eGFR For Non-African Americans > 60 (> 60)
[2022-03-19 14:15] LABS: Prothrombin Time 17.5 Seconds (9.4-12.1)
[2022-03-19] MEDS ORDERED: 0.9 % Sodium Chloride 250 ML ONE ×2 (14:37→15:17)
[2022-03-19] MEDS ORDERED: Aspirin 81 MG TAB.CHEW PO ONE (15:00)
[2022-03-19] MEDS: *HR* FentaNYL (PF) 100 MCG/2 ML VIAL IVP PRN ×3 (15:02→21:51)
[2022-03-19] MEDS: Dexmedetomidine HCl 400 MCG/100 ML MLS IVC SCH (15:31)
[2022-03-19] MEDS: Norepinephrine 4 MG/254 ML IV.SOLN IVC SCH ×2 (15:51→15:55)
[2022-03-19] MEDS: DOBUTamine 1,000 MG/250 ML BAG IVC SCH (15:51)
[2022-03-19 17:11] LABS: INR 1.5; Prothrombin Time 16.9 Seconds (9.4-12.1)
[2022-03-19 17:20] LABS: Basophils % 0.3 %; Eosinophils % 0.2 %; Hematocrit 20.3 % (37.5-50.1); Immature Granulocytes % 0.6 % (0-4); Lymphocytes % 8.9 %; Mean Corpuscular HGB Conc 34.5 g/dL (31.6-35.5); Mean Corpuscular Hemoglobin 31.5 pg (28.0-33.3); Mean Corpuscular Volume 91.4 fL (83.0-100.0); Mean Platelet Volume 8.7 fL (9.4-12.4); Monocytes # 0.6 K/mcL (0.0-1.3); Monocytes % 5.5 %; Neutrophils # 9.7 K/mcL (1.6-8.9); Platelet Count 128 K/mcL (140-400); Red Blood Count 2.22 M/mcL (4.19-5.50); Red Cell Distribution Width 13.9 % (11.5-14.5); Segmented Neutrophils % 84.5 %; White Blood Count 11.5 K/mcL (4.3-11.1)
[2022-03-19] MEDS ORDERED: *HR* Vasopressin 20 UNIT/ML VIAL ONE (17:27)
[2022-03-19] MEDS ORDERED: NiCARdipine 2.5 MG/10 ML Syringe IVPB ONE (17:27)
[2022-03-19] MEDS: Pantoprazole 40 MG VIAL IVP SCH (17:33)
[2022-03-19 17:37] LABS: ABG Base Excess -1 mEq/L (-2 to 3); ABG HCO3 23 mEq/L (21-27); ABG Oxygen Saturation 100 % (95-98); ABG PCO2 36 mmHg (35-45); ABG PH 7.42 pH Units (7.32-7.45); ABG PO2 240 mmHg (85-104); ABG TCO2 24 mEq/L (20-26); Blood Gas Modality ASSIST CONTROL; Blood Gas VT 500 cc
[2022-03-19 18:06] LABS: ABG Base Excess -2 mEq/L (-2 to 3); ABG Chloride 107 mEq/L (98-107); ABG Glucose 140 mg/dL (60-95); ABG HCO3 23 mEq/L (21-27); ABG Ionized Calcium 0.97 mmol/L (1.15-1.35); ABG Oxygen Saturation 100 % (95-98); ABG PCO2 38 mmHg (35-45); ABG PH 7.39 pH Units (7.32-7.45); ABG PO2 433 mmHg (85-104); ABG TCO2 24 mEq/L (20-26)
[2022-03-19] MEDS: CeFAZolin 2 GM/120 ML BAG IVPB SCH (18:20)
[2022-03-19 19:23] LABS: ABG Base Excess -4 mEq/L (-2 to 3); ABG Chloride 112 mEq/L (98-107); ABG Glucose 123 mg/dL (60-95); ABG HCO3 21 mEq/L (21-27); ABG Ionized Calcium 1.01 mmol/L (1.15-1.35); ABG Oxygen Saturation 100 % (95-98); ABG PCO2 39 mmHg (35-45); ABG PH 7.34 pH Units (7.32-7.45); ABG PO2 309 mmHg (85-104); ABG TCO2 22 mEq/L (20-26)
[2022-03-19 20:04] LABS: ABG Base Excess -3 mEq/L (-2 to 3); ABG HCO3 22 mEq/L (21-27); ABG Oxygen Saturation 100 % (95-98); ABG PCO2 39 mmHg (35-45); ABG PH 7.36 pH Units (7.32-7.45); ABG PO2 217 mmHg (85-104); ABG TCO2 23 mEq/L (20-26)
[2022-03-19 20:26] LABS: Hemoglobin 7.8 g/dL (12.9-16.9); Immature Platelets 3.3 % (1.1-6.1); Mean Corpuscular HGB Conc 33.9 g/dL (31.6-35.5); Mean Corpuscular Hemoglobin 31.1 pg (28.0-33.3); Mean Corpuscular Volume 91.6 fL (83.0-100.0); Mean Platelet Volume 9.4 fL (9.4-12.4); Red Blood Count 2.51 M/mcL (4.19-5.50); Red Cell Distribution Width 13.6 % (11.5-14.5); White Blood Count 8.5 K/mcL (4.3-11.1)
[2022-03-19 20:34] LABS: INR 1.5; Prothrombin Time 17.1 Seconds (9.4-12.1)
[2022-03-19 20:36] LABS: Activated Partial Thrombo Time 29.4 Seconds (26.0-36.0)
[2022-03-19 20:40] LABS: BUN/Creatinine Ratio 13 (6-26); Blood Urea Nitrogen 13 mg/dL (8-23); Calcium 7.3 mg/dL (8.6-10.3); Carbon Dioxide 23 mEq/L (23-29); Chloride 110 mEq/L (98-107); Glucose 123 mg/dL (70-105); Magnesium 2.1 mg/dL (1.6-2.6); Osmolality,Calculated 293 (280-300); Potassium 3.9 mEq/L (3.5-5.1); Sodium 141 mEq/L (136-145); eGFR For African Americans > 60 (> 60); eGFR For Non-African Americans > 60 (> 60)
[2022-03-19] MEDS: *HR* OxyCODONE/APAP 5/325 TABLET PO PRN (23:01)
[2022-03-20 00:09] LABS: ABG Base Excess -3 mEq/L (-2 to 3); ABG HCO3 22 mEq/L (21-27); ABG Oxygen Saturation 100 % (95-98); ABG PCO2 34 mmHg (35-45); ABG PH 7.41 pH Units (7.32-7.45); ABG PO2 220 mmHg (85-104); ABG TCO2 23 mEq/L (20-26); Blood Gas VT 500 cc
[2022-03-20] MEDS: *HR* FentaNYL (PF) 100 MCG/2 ML VIAL IVP PRN ×3 (00:20→10:12)
[2022-03-20] MEDS: Chlorhexidine Rinse 15 ML MOUTHWASH MM SCH ×3 (00:30→19:44)
[2022-03-20] MEDS: CeFAZolin 2 GM/120 ML BAG IVPB SCH ×3 (01:02→15:35)
[2022-03-20 01:31] LABS: Hematocrit 22.8 % (37.5-50.1)
[2022-03-20] MEDS: Norepinephrine 4 MG/254 ML IV.SOLN IVC SCH (02:48)
[2022-03-20] MEDS: *HR* OxyCODONE/APAP 5/325 TABLET PO PRN ×4 (03:03→17:55)
[2022-03-20 04:16] LABS: ABG Base Excess -3 mEq/L (-2 to 3); ABG HCO3 21 mEq/L (21-27); ABG Oxygen Saturation 99 % (95-98); ABG PCO2 32 mmHg (35-45); ABG PH 7.44 pH Units (7.32-7.45); ABG PO2 152 mmHg (85-104); ABG TCO2 22 mEq/L (20-26); Blood Gas VT 500 cc
[2022-03-20 04:29] LABS: Basophils % 0.1 %; Hematocrit 21.8 % (37.5-50.1); Hemoglobin 7.6 g/dL (12.9-16.9); Immature Granulocytes % 0.3 % (0-4); Lymphocytes # 0.7 K/mcL (0.6-4.6); Lymphocytes % 7.5 %; Mean Corpuscular HGB Conc 34.9 g/dL (31.6-35.5); Mean Corpuscular Hemoglobin 30.9 pg (28.0-33.3); Mean Corpuscular Volume 88.6 fL (83.0-100.0); Mean Platelet Volume 9.8 fL (9.4-12.4); Monocytes # 0.9 K/mcL (0.0-1.3); Monocytes % 9.1 %; Neutrophils # 7.8 K/mcL (1.6-8.9); Platelet Count 117 K/mcL (140-400); Red Blood Count 2.46 M/mcL (4.19-5.50); Red Cell Distribution Width 14.4 % (11.5-14.5); White Blood Count 9.4 K/mcL (4.3-11.1)
[2022-03-20 04:37] LABS: INR 1.4; Prothrombin Time 15.8 Seconds (9.4-12.1)
[2022-03-20 04:39] LABS: Activated Partial Thrombo Time 25.9 Seconds (26.0-36.0)
[2022-03-20] MEDS ORDERED: Albumin Human 5% 12.5 GM/250 ML IV.SOLN IVPB PRN (04:49)
[2022-03-20] MEDS ORDERED: Albumin Human 5% 12.5 GM/250 ML IV.SOLN ONE (04:49)
[2022-03-20 04:51] LABS: BUN/Creatinine Ratio 15 (6-26); Blood Urea Nitrogen 19 mg/dL (8-23); Calcium 8.3 mg/dL (8.6-10.3); Carbon Dioxide 21 mEq/L (23-29); Chloride 108 mEq/L (98-107); Glucose 160 mg/dL (70-105); Magnesium 2.5 mg/dL (1.6-2.6); Osmolality,Calculated 294 (280-300); Potassium 4.2 mEq/L (3.5-5.1); Sodium 139 mEq/L (136-145); eGFR For African Americans > 60 (> 60); eGFR For Non-African Americans 56 (> 60)
[2022-03-20] MEDS: niCARdipine 20 MG/200 ML MLS IVC SCH ×4 (06:40→15:54)
[2022-03-20 07:27] LABS: ABG Base Excess -2 mEq/L (-2 to 3); ABG HCO3 22 mEq/L (21-27); ABG Oxygen Saturation 97 % (95-98); ABG PCO2 31 mmHg (35-45); ABG PH 7.44 pH Units (7.32-7.45); ABG PO2 90 mmHg (85-104); ABG TCO2 22 mEq/L (20-26); Blood Gas Modality CPAP/PS; Blood Gas Pressure Support 8 cm H2O
[2022-03-20] MEDS: Ondansetron 4 MG/2 ML VIAL IVP PRN ×2 (07:52→13:55)
[2022-03-20] MEDS: Aspirin Enteric Coated 81 MG Tablet PO SCH (08:36)
[2022-03-20] MEDS: Pantoprazole 40 MG VIAL IVP SCH (08:37)
[2022-03-20] MEDS: DOBUTamine 1,000 MG/250 ML BAG IVC SCH (08:37)
[2022-03-20] MEDS: *HR* Enoxaparin 40 MG/0.4 ML SYRINGE SQ SCH (08:37)
[2022-03-20 10:09] LABS: ABG Base Excess -4 mEq/L (-2 to 3); ABG HCO3 20 mEq/L (21-27); ABG Oxygen Saturation 93 % (95-98); ABG PCO2 29 mmHg (35-45); ABG PH 7.44 pH Units (7.32-7.45); ABG PO2 64 mmHg (85-104); ABG TCO2 21 mEq/L (20-26)
[2022-03-20] MEDS ORDERED: D5% in Water 1,000 ML IVC PRN (10:22)
[2022-03-20] MEDS ORDERED: Dextrose Gel 15 GM/37.5 ML TUBE PO PRN ×2 (10:22)
[2022-03-20] MEDS ORDERED: *HR* Dextrose 50 % in Water (Syg) 50 ML SYRINGE IVP PRN (10:22)
[2022-03-20] MEDS: Insulin LISPRO 300 UNITS/3 ML VIAL SUBQ SCH ×3 (11:43→19:45)
[2022-03-20] MEDS: Dexmedetomidine HCl 400 MCG/100 ML MLS IVC SCH (15:33)
[2022-03-20 15:40] LABS: Basophils % 0.1 %; Hematocrit 21.4 % (37.5-50.1); Hemoglobin 7.4 g/dL (12.9-16.9); Immature Granulocytes % 0.3 % (0-4); Lymphocytes # 1.1 K/mcL (0.6-4.6); Lymphocytes % 7.2 %; Mean Corpuscular HGB Conc 34.6 g/dL (31.6-35.5); Mean Corpuscular Hemoglobin 31.2 pg (28.0-33.3); Mean Corpuscular Volume 90.3 fL (83.0-100.0); Mean Platelet Volume 10.2 fL (9.4-12.4); Monocytes # 1.7 K/mcL (0.0-1.3); Monocytes % 11.2 %; Platelet Count 103 K/mcL (140-400); Red Blood Count 2.37 M/mcL (4.19-5.50); Red Cell Distribution Width 15.1 % (11.5-14.5); Segmented Neutrophils % 81.2 %
[2022-03-20 15:49] LABS: White Blood Count 14.8 K/mcL (4.3-11.1)
[2022-03-20 15:53] LABS: BUN/Creatinine Ratio 18 (6-26); Blood Urea Nitrogen 24 mg/dL (8-23); Carbon Dioxide 17 mEq/L (23-29); Chloride 107 mEq/L (98-107); Glucose 206 mg/dL (70-105); Magnesium 2.3 mg/dL (1.6-2.6); Osmolality,Calculated 300 (280-300); Phosphorous 3.5 mg/dL (2.7-4.5); Potassium 3.8 mEq/L (3.5-5.1); Sodium 140 mEq/L (136-145); eGFR For African Americans > 60 (> 60); eGFR For Non-African Americans 52 (> 60)
[2022-03-20] MEDS ORDERED: Ketorolac 30 MG/ML VIAL IVP PRN (19:53)
[2022-03-21] MEDS: *HR* OxyCODONE/APAP 5/325 TABLET PO PRN ×3 (00:01→15:34)
[2022-03-21] MEDS ORDERED: 0.9 % Sodium Chloride 500 ML ONE (03:51)
[2022-03-21 04:30] LABS: Basophils % 0.1 %; Hemoglobin 6.8 g/dL (12.9-16.9); Immature Granulocytes % 0.6 % (0-4); Lymphocytes % 9.6 %
[2022-03-21 04:32] LABS: Hematocrit 19.9 % (37.5-50.1); Immature Platelets 5.6 % (1.1-6.1); Lymphocytes # 1.4 K/mcL (0.6-4.6); Mean Corpuscular HGB Conc 34.2 g/dL (31.6-35.5); Mean Corpuscular Hemoglobin 30.9 pg (28.0-33.3); Mean Corpuscular Volume 90.5 fL (83.0-100.0); Mean Platelet Volume 10.7 fL (9.4-12.4); Monocytes # 1.7 K/mcL (0.0-1.3); Monocytes % 12.1 %; Nucleated Red Blood Cells 0.1 /100 WBC (0); Segmented Neutrophils % 77.6 %; White Blood Count 14.2 K/mcL (4.3-11.1)
[2022-03-21 04:35] LABS: Platelet Count 96 K/mcL (140-400)
[2022-03-21] MEDS: niCARdipine 20 MG/200 ML MLS IVC SCH ×7 (04:35→19:56)
[2022-03-21 04:41] LABS: Calcium 8.3 mg/dL (8.6-10.3); Magnesium 2.5 mg/dL (1.6-2.6); Potassium 3.6 mEq/L (3.5-5.1)
[2022-03-21] MEDS ORDERED: 0.9 % Sodium Chloride 250 ML ONE (07:52)
[2022-03-21] MEDS: Aspirin Enteric Coated 81 MG Tablet PO SCH (08:15)
[2022-03-21] MEDS: Chlorhexidine Rinse 15 ML MOUTHWASH MM SCH ×2 (08:15→20:02)
[2022-03-21] MEDS: Pantoprazole 40 MG VIAL IVP SCH (08:15)
[2022-03-21] MEDS: *HR* Enoxaparin 40 MG/0.4 ML SYRINGE SQ SCH (08:15)
[2022-03-21] MEDS: CeFAZolin 2 GM/120 ML BAG IVPB SCH ×2 (08:16)
[2022-03-21] MEDS: Norepinephrine 4 MG/254 ML IV.SOLN IVC SCH ×2 (08:16→20:05)
[2022-03-21] MEDS: Insulin LISPRO 300 UNITS/3 ML VIAL SUBQ SCH ×4 (08:16→20:03)
[2022-03-21] MEDS: DOBUTamine 1,000 MG/250 ML BAG IVC SCH (08:18)
[2022-03-21] MEDS ORDERED: Potassium Chloride Elixir 20 MEQ/15 ML UDC PO ONE ×2 (09:08→17:42)
[2022-03-21] MEDS ORDERED: Amiodarone Premix 150 MG/100 ML BAG IVPB ONE (11:15)
[2022-03-21 11:32] LABS: ABG Base Excess -3 mEq/L (-2 to 3); ABG HCO3 20 mEq/L (21-27); ABG Oxygen Saturation 91 % (95-98); ABG PCO2 27 mmHg (35-45); ABG PH 7.47 pH Units (7.32-7.45); ABG PO2 54 mmHg (85-104); ABG TCO2 21 mEq/L (20-26)
[2022-03-21] MEDS ORDERED: Albumin 25% 25gram/100mL 25 GM/100 ML IV.SOLN ONE (11:43)
[2022-03-21] MEDS: *HR* Amiodarone 200 MG TABLET PO SCH (12:07)
[2022-03-21] MEDS ORDERED: Albumin 25% 12.5gm/50mL 12.5 GM/50 ML IV.SOLN IVPB ONE (12:08)
[2022-03-21 12:49] LABS: ABG Base Excess -2 mEq/L (-2 to 3); ABG HCO3 22 mEq/L (21-27); ABG Oxygen Saturation 100 % (95-98); ABG PCO2 33 mmHg (35-45); ABG PH 7.43 pH Units (7.32-7.45); ABG PO2 177 mmHg (85-104); ABG TCO2 23 mEq/L (20-26)
[2022-03-21] MEDS: Dexmedetomidine HCl 400 MCG/100 ML MLS IVC SCH (12:52)
[2022-03-21] MEDS ORDERED: 0.9 % Sodium Chloride 1,000 ML IVC SCH (16:45)
[2022-03-21 17:01] LABS: Hematocrit 21.4 % (37.5-50.1); Hemoglobin 7.6 g/dL (12.9-16.9); Mean Corpuscular HGB Conc 35.5 g/dL (31.6-35.5); Mean Corpuscular Hemoglobin 31.8 pg (28.0-33.3); Mean Corpuscular Volume 89.5 fL (83.0-100.0); Mean Platelet Volume 10.6 fL (9.4-12.4); Red Blood Count 2.39 M/mcL (4.19-5.50); Red Cell Distribution Width 14.6 % (11.5-14.5); White Blood Count 16.2 K/mcL (4.3-11.1)
[2022-03-21 17:02] LABS: Platelet Count 89 K/mcL (140-400)
[2022-03-21 17:23] LABS: BUN/Creatinine Ratio 24 (6-26); Blood Urea Nitrogen 32 mg/dL (8-23); Calcium 8.6 mg/dL (8.6-10.3); Carbon Dioxide 22 mEq/L (23-29); Chloride 108 mEq/L (98-107); Glucose 144 mg/dL (70-105); Osmolality,Calculated 295 (280-300); Potassium 3.6 mEq/L (3.5-5.1); Sodium 138 mEq/L (136-145); eGFR For African Americans > 60 (> 60); eGFR For Non-African Americans 51 (> 60)
[2022-03-22] MEDS: niCARdipine 20 MG/200 ML MLS IVC SCH ×6 (03:11→23:58)
[2022-03-22 03:29] LABS: Eosinophils % 0.1 %; Hemoglobin 7.3 g/dL (12.9-16.9); Immature Granulocytes % 0.9 % (0-4); Mean Platelet Volume 10.2 fL (9.4-12.4); Monocytes % 9.2 %
[2022-03-22 03:31] LABS: Basophils # 0.1 K/mcL (0.0-0.2); Basophils % 0.3 %; Hematocrit 21.9 % (37.5-50.1); Immature Platelets 4.9 % (1.1-6.1); Lymphocytes # 1.4 K/mcL (0.6-4.6); Lymphocytes % 9.4 %; Mean Corpuscular HGB Conc 33.3 g/dL (31.6-35.5); Mean Corpuscular Hemoglobin 30.2 pg (28.0-33.3); Mean Corpuscular Volume 90.5 fL (83.0-100.0); Monocytes # 1.4 K/mcL (0.0-1.3); Neutrophils # 12.2 K/mcL (1.6-8.9); Nucleated Red Blood Cells 1.2 /100 WBC (0); Platelet Count 95 K/mcL (140-400); Red Blood Count 2.42 M/mcL (4.19-5.50); Segmented Neutrophils % 80.1 %; White Blood Count 15.2 K/mcL (4.3-11.1)
[2022-03-22 03:42] LABS: BUN/Creatinine Ratio 25 (6-26); Blood Urea Nitrogen 31 mg/dL (8-23); Calcium 8.6 mg/dL (8.6-10.3); Carbon Dioxide 22 mEq/L (23-29); Chloride 111 mEq/L (98-107); Glucose 129 mg/dL (70-105); Magnesium 2.7 mg/dL (1.6-2.6); Osmolality,Calculated 298 (280-300); Potassium 4.3 mEq/L (3.5-5.1); Sodium 140 mEq/L (136-145); eGFR For African Americans > 60 (> 60); eGFR For Non-African Americans 57 (> 60)
[2022-03-22] MEDS: *HR* Enoxaparin 40 MG/0.4 ML SYRINGE SQ SCH (05:06)
[2022-03-22] MEDS: Insulin LISPRO 300 UNITS/3 ML VIAL SUBQ SCH ×4 (07:42→21:42)
[2022-03-22] MEDS: *HR* OxyCODONE/APAP 5/325 TABLET PO PRN ×4 (07:53→21:42)
[2022-03-22] MEDS: *HR* Amiodarone 200 MG TABLET PO SCH (07:53)
[2022-03-22] MEDS: Chlorhexidine Rinse 15 ML MOUTHWASH MM SCH ×2 (07:54→20:06)
[2022-03-22] MEDS: Pantoprazole 40 MG VIAL IVP SCH (07:54)
[2022-03-22] MEDS: Aspirin Enteric Coated 81 MG Tablet PO SCH (07:54)
[2022-03-22 09:26] LABS: ABG Base Excess -4 mEq/L (-2 to 3); ABG HCO3 19 mEq/L (21-27); ABG Oxygen Saturation 94 % (95-98); ABG PCO2 26 mmHg (35-45); ABG PH 7.48 pH Units (7.32-7.45); ABG PO2 63 mmHg (85-104); ABG TCO2 20 mEq/L (20-26)
[2022-03-22] MEDS ORDERED: Furosemide 20 MG/2 ML VIAL IVP ONE (10:35)
[2022-03-22] MEDS: DOBUTamine 1,000 MG/250 ML BAG IVC SCH (11:02)
[2022-03-22] MEDS: Nystatin SUSP 5 ML UD.LIQ PO SCH ×3 (11:36→20:06)
[2022-03-22] MEDS: Norepinephrine 4 MG/254 ML IV.SOLN IVC SCH (16:15)
[2022-03-23] MEDS: niCARdipine 20 MG/200 ML MLS IVC SCH ×2 (05:34→05:35)
[2022-03-23] MEDS: *HR* Enoxaparin 40 MG/0.4 ML SYRINGE SQ SCH (06:08)
[2022-03-23 06:51] LABS: Basophils # 0.1 K/mcL (0.0-0.2); Basophils % 0.3 %; Eosinophils # 0.1 K/mcL (0.0-0.6); Eosinophils % 0.5 %; Hematocrit 29.7 % (37.5-50.1); Immature Granulocytes % 1.1 % (0-4); Lymphocytes # 1.4 K/mcL (0.6-4.6); Lymphocytes % 9.5 %; Mean Corpuscular Hemoglobin 31.1 pg (28.0-33.3); Mean Corpuscular Volume 91.4 fL (83.0-100.0); Mean Platelet Volume 10.6 fL (9.4-12.4); Monocytes # 1.1 K/mcL (0.0-1.3); Monocytes % 7.4 %; Neutrophils # 12.3 K/mcL (1.6-8.9); Nucleated Red Blood Cells 1.6 /100 WBC (0); Platelet Count 123 K/mcL (140-400); Red Blood Count 3.25 M/mcL (4.19-5.50); Red Cell Distribution Width 15.2 % (11.5-14.5); Segmented Neutrophils % 81.2 %; White Blood Count 15.1 K/mcL (4.3-11.1)
[2022-03-23 06:52] LABS: Hemoglobin 10.1 g/dL (12.9-16.9)
[2022-03-23 07:21] LABS: BUN/Creatinine Ratio 23 (6-26); Blood Urea Nitrogen 27 mg/dL (8-23); Calcium 8.5 mg/dL (8.6-10.3); Carbon Dioxide 23 mEq/L (23-29); Chloride 110 mEq/L (98-107); Glucose 117 mg/dL (70-105); Magnesium 2.4 mg/dL (1.6-2.6); Osmolality,Calculated 296 (280-300); Sodium 140 mEq/L (136-145); eGFR For African Americans > 60 (> 60); eGFR For Non-African Americans > 60 (> 60)
[2022-03-23] MEDS: Insulin LISPRO 300 UNITS/3 ML VIAL SUBQ SCH ×4 (07:36→20:11)
[2022-03-23] MEDS: Chlorhexidine Rinse 15 ML MOUTHWASH MM SCH ×2 (09:00→20:09)
[2022-03-23] MEDS: Nystatin SUSP 5 ML UD.LIQ PO SCH ×4 (09:00→20:09)
[2022-03-23] MEDS: Pantoprazole 40 MG VIAL IVP SCH (09:01)
[2022-03-23] MEDS: Aspirin Enteric Coated 81 MG Tablet PO SCH (09:01)
[2022-03-23] MEDS ORDERED: Naloxone 0.4 MG/ML INJ IVP PRN (09:15)
[2022-03-23] MEDS ORDERED: D5% in Water 1,000 ML IVC PRN (09:15)
[2022-03-23] MEDS ORDERED: *HR* Dextrose 50 % in Water (Syg) 50 ML SYRINGE IVP PRN (09:15)
[2022-03-23] MEDS ORDERED: Dextrose Gel 15 GM/37.5 ML TUBE PO PRN ×2 (09:15)
[2022-03-23] MEDS ORDERED: Acetaminophen 325 MG TABLET PO PRN (09:15)
[2022-03-23] MEDS ORDERED: Ondansetron 4 MG/2 ML VIAL IVP PRN (09:15)
[2022-03-23] MEDS ORDERED: Furosemide 20 MG/2 ML VIAL IVP ONE (09:15)
[2022-03-23] MEDS ORDERED: Bumetanide 1 MG/4 ML VIAL IVP ONE (09:18)
[2022-03-23] MEDS: amLODIPine 5 MG TABLET PO SCH (09:51)
[2022-03-23] MEDS: *HR* Amiodarone 200 MG TABLET PO SCH (12:43)
[2022-03-23] MEDS: *HR* OxyCODONE/APAP 5/325 TABLET PO PRN (20:10)
[2022-03-24 03:49] LABS: Basophils % 0.4 %; Eosinophils # 0.2 K/mcL (0.0-0.6); Eosinophils % 1.9 %; Hematocrit 30.9 % (37.5-50.1); Hemoglobin 10.4 g/dL (12.9-16.9); Immature Granulocytes % 1.5 % (0-4); Lymphocytes # 1.3 K/mcL (0.6-4.6); Lymphocytes % 12.2 %; Mean Corpuscular HGB Conc 33.7 g/dL (31.6-35.5); Mean Corpuscular Hemoglobin 30.1 pg (28.0-33.3); Mean Corpuscular Volume 89.3 fL (83.0-100.0); Mean Platelet Volume 9.8 fL (9.4-12.4); Monocytes % 9.1 %; Neutrophils # 8.3 K/mcL (1.6-8.9); Nucleated Red Blood Cells 1.2 /100 WBC (0); Platelet Count 155 K/mcL (140-400); Red Blood Count 3.46 M/mcL (4.19-5.50); Red Cell Distribution Width 14.6 % (11.5-14.5); Segmented Neutrophils % 74.9 %
[2022-03-24] MEDS: *HR* OxyCODONE/APAP 5/325 TABLET PO PRN ×2 (04:00→17:20)
[2022-03-24 04:11] LABS: BUN/Creatinine Ratio 24 (6-26); Blood Urea Nitrogen 23 mg/dL (8-23); Calcium 8.5 mg/dL (8.6-10.3); Carbon Dioxide 25 mEq/L (23-29); Chloride 104 mEq/L (98-107); Glucose 102 mg/dL (70-105); Magnesium 2.2 mg/dL (1.6-2.6); Osmolality,Calculated 288 (280-300); Potassium 3.5 mEq/L (3.5-5.1); Sodium 137 mEq/L (136-145); eGFR For African Americans > 60 (> 60); eGFR For Non-African Americans > 60 (> 60)
[2022-03-24] MEDS: *HR* Enoxaparin 40 MG/0.4 ML SYRINGE SQ SCH (05:48)
[2022-03-24] MEDS: *HR* Amiodarone 200 MG TABLET PO SCH (08:35)
[2022-03-24] MEDS: Insulin LISPRO 300 UNITS/3 ML VIAL SUBQ SCH ×4 (08:35→21:04)
[2022-03-24] MEDS: amLODIPine 5 MG TABLET PO SCH (08:36)
[2022-03-24] MEDS: Aspirin Enteric Coated 81 MG Tablet PO SCH (08:36)
[2022-03-24] MEDS: Chlorhexidine Rinse 15 ML MOUTHWASH MM SCH ×2 (08:38→21:13)
[2022-03-24] MEDS: Nystatin SUSP 5 ML UD.LIQ PO SCH ×4 (08:38→21:13)
[2022-03-25 02:02] LABS: Basophils # 0.1 K/mcL (0.0-0.2); Basophils % 0.6 %; Eosinophils # 0.4 K/mcL (0.0-0.6); Eosinophils % 3.4 %; Hematocrit 31.8 % (37.5-50.1); Hemoglobin 10.7 g/dL (12.9-16.9); Immature Granulocytes % 2.3 % (0-4); Lymphocytes # 1.3 K/mcL (0.6-4.6); Lymphocytes % 11.9 %; Mean Corpuscular HGB Conc 33.6 g/dL (31.6-35.5); Mean Corpuscular Hemoglobin 30.4 pg (28.0-33.3); Mean Corpuscular Volume 90.3 fL (83.0-100.0); Mean Platelet Volume 9.8 fL (9.4-12.4); Monocytes # 1.2 K/mcL (0.0-1.3); Monocytes % 10.7 %; Nucleated Red Blood Cells 0.4 /100 WBC (0); Platelet Count 178 K/mcL (140-400); Red Blood Count 3.52 M/mcL (4.19-5.50); Red Cell Distribution Width 14.2 % (11.5-14.5); Segmented Neutrophils % 71.1 %; White Blood Count 11.2 K/mcL (4.3-11.1)
[2022-03-25 02:21] LABS: BUN/Creatinine Ratio 22 (6-26); Blood Urea Nitrogen 20 mg/dL (8-23); Calcium 8.6 mg/dL (8.6-10.3); Carbon Dioxide 24 mEq/L (23-29); Chloride 103 mEq/L (98-107); Glucose 112 mg/dL (70-105); Magnesium 1.9 mg/dL (1.6-2.6); Osmolality,Calculated 281 (280-300); Potassium 3.6 mEq/L (3.5-5.1); Sodium 134 mEq/L (136-145); eGFR For African Americans > 60 (> 60); eGFR For Non-African Americans > 60 (> 60)
[2022-03-25] MEDS: *HR* Enoxaparin 40 MG/0.4 ML SYRINGE SQ SCH (05:08)
[2022-03-25] MEDS: *HR* OxyCODONE/APAP 5/325 TABLET PO PRN ×2 (05:08→20:40)
[2022-03-25] MEDS: Insulin LISPRO 300 UNITS/3 ML VIAL SUBQ SCH ×4 (09:08→20:42)
[2022-03-25] MEDS: amLODIPine 5 MG TABLET PO SCH (09:08)
[2022-03-25] MEDS: *HR* Amiodarone 200 MG TABLET PO SCH (09:09)
[2022-03-25] MEDS: Nystatin SUSP 5 ML UD.LIQ PO SCH ×4 (09:09→20:41)
[2022-03-25] MEDS: Aspirin Enteric Coated 81 MG Tablet PO SCH (09:09)
[2022-03-25] MEDS: Chlorhexidine Rinse 15 ML MOUTHWASH MM SCH ×2 (09:10→20:41)
[2022-03-25] MEDS ORDERED: Ketorolac 30 MG/ML VIAL IVP ONE (10:22)
[2022-03-25] MEDS ORDERED: amLODIPine 5 MG TABLET PO ONE (12:45)
[2022-03-26] MEDS: *HR* Enoxaparin 40 MG/0.4 ML SYRINGE SQ SCH (05:57)
[2022-03-26 06:23] LABS: Basophils # 0.1 K/mcL (0.0-0.2); Basophils % 0.6 %; Eosinophils # 0.6 K/mcL (0.0-0.6); Eosinophils % 5.1 %; Hematocrit 34.7 % (37.5-50.1); Hemoglobin 11.7 g/dL (12.9-16.9); Immature Granulocytes % 2.2 % (0-4); Lymphocytes # 1.2 K/mcL (0.6-4.6); Lymphocytes % 11.2 %; Mean Corpuscular HGB Conc 33.7 g/dL (31.6-35.5); Mean Corpuscular Hemoglobin 29.8 pg (28.0-33.3); Mean Corpuscular Volume 88.5 fL (83.0-100.0); Mean Platelet Volume 9.7 fL (9.4-12.4); Monocytes % 8.7 %; Neutrophils # 7.9 K/mcL (1.6-8.9); Platelet Count 229 K/mcL (140-400); Red Blood Count 3.92 M/mcL (4.19-5.50); Red Cell Distribution Width 13.8 % (11.5-14.5); Segmented Neutrophils % 72.2 %; White Blood Count 10.9 K/mcL (4.3-11.1)
[2022-03-26 06:47] LABS: BUN/Creatinine Ratio 22 (6-26); Blood Urea Nitrogen 19 mg/dL (8-23); Calcium 8.8 mg/dL (8.6-10.3); Carbon Dioxide 22 mEq/L (23-29); Chloride 101 mEq/L (98-107); Glucose 95 mg/dL (70-105); Magnesium 1.9 mg/dL (1.6-2.6); Osmolality,Calculated 278 (280-300); Potassium 3.4 mEq/L (3.5-5.1); Sodium 133 mEq/L (136-145); eGFR For African Americans > 60 (> 60); eGFR For Non-African Americans > 60 (> 60)
[2022-03-26] MEDS: Insulin LISPRO 300 UNITS/3 ML VIAL SUBQ SCH ×4 (07:38→20:29)
[2022-03-26] MEDS ORDERED: Magnesium Oxide 400 MG TABLET PO ONE (08:19)
[2022-03-26] MEDS: Aspirin Enteric Coated 81 MG Tablet PO SCH (09:25)
[2022-03-26] MEDS: Nystatin SUSP 5 ML UD.LIQ PO SCH ×4 (09:25→20:36)
[2022-03-26] MEDS: Chlorhexidine Rinse 15 ML MOUTHWASH MM SCH ×2 (09:25→20:36)
[2022-03-26] MEDS: *HR* Amiodarone 200 MG TABLET PO SCH (09:25)
[2022-03-26] MEDS: amLODIPine 5 MG TABLET PO SCH (09:26)
[2022-03-26] MEDS: lisinopriL 20 MG TABLET PO SCH (11:13)
[2022-03-26] MEDS: *HR* OxyCODONE/APAP 5/325 TABLET PO PRN (20:36)
[2022-03-27 02:06] LABS: Hematocrit 32.9 % (37.5-50.1); Hemoglobin 10.9 g/dL (12.9-16.9); Mean Corpuscular HGB Conc 33.1 g/dL (31.6-35.5); Mean Corpuscular Hemoglobin 29.9 pg (28.0-33.3); Mean Corpuscular Volume 90.4 fL (83.0-100.0); Mean Platelet Volume 9.7 fL (9.4-12.4); Platelet Count 257 K/mcL (140-400); Red Blood Count 3.64 M/mcL (4.19-5.50); Red Cell Distribution Width 13.7 % (11.5-14.5); White Blood Count 10.6 K/mcL (4.3-11.1)
[2022-03-27 02:39] LABS: BUN/Creatinine Ratio 22 (6-26); Blood Urea Nitrogen 20 mg/dL (8-23); Calcium 8.9 mg/dL (8.6-10.3); Carbon Dioxide 24 mEq/L (23-29); Chloride 102 mEq/L (98-107); Glucose 98 mg/dL (70-105); Magnesium 2.1 mg/dL (1.6-2.6); Osmolality,Calculated 281 (280-300); Potassium 4.4 mEq/L (3.5-5.1); Sodium 134 mEq/L (136-145); eGFR For African Americans > 60 (> 60); eGFR For Non-African Americans > 60 (> 60)
[2022-03-27] MEDS: *HR* Enoxaparin 40 MG/0.4 ML SYRINGE SQ SCH (05:24)
[2022-03-27 06:55] VITALS: TEMP 98.4
[2022-03-27] MEDS: Insulin LISPRO 300 UNITS/3 ML VIAL SUBQ SCH (07:41)
[2022-03-27] MEDS: Nystatin SUSP 5 ML UD.LIQ PO SCH ×2 (08:22→12:09)
[2022-03-27] MEDS: Chlorhexidine Rinse 15 ML MOUTHWASH MM SCH (08:22)
[2022-03-27] MEDS: Aspirin Enteric Coated 81 MG Tablet PO SCH (08:23)
[2022-03-27] MEDS: amLODIPine 5 MG TABLET PO SCH (08:23)
[2022-03-27] MEDS: *HR* Amiodarone 200 MG TABLET PO SCH (08:23)
[2022-03-27] MEDS: lisinopriL 20 MG TABLET PO SCH (08:24)
[2022-03-27 11:14] VITALS: BP 167/66; PULSE 76; O2SAT 95
== END 2022-03-27 13:29 | disposition home health service (06) | DRG 219 ==
LOC: SAMDAY 06:04 → ICNU 12:59 → SUATTDRO 12:59 → 2NNU 03-24 21:09
PROVIDERS: ADMIT Thoracic Surgery (Cardiothoracic Vascular Surgery); ATTEND Internal Medicine